=== PATIENT | female | born 1965 | race Caucasian/White ===

== ENCOUNTER → 2016-06-19 | Outpatient (CLI) | payer BC ==
--- NOTE | 2016-06-20 09:33 | MM ---
Reason for exam: screening (asymptomatic). History: Patient is postmenopausal and has history of other cancer at age 22. Physical Findings: Nurse did not find any significant physical abnormalities on exam. MG Screening Mammo w CAD Bilateral CC and MLO view(s) were taken. The breast tissue is heterogeneously dense. This may lower the sensitivity of mammography. Large 5cm circumscribed mass central left breast. Additional nodularity upper outer quadrant posteriorly. These results were verbally communicated with the patient and result sheet given to the patient on 06/19/16. ASSESSMENT: Incomplete: need additional imaging evaluation, BI-RAD 0 RECOMMENDATION: Ultrasound of the left breast. ALED
--- NOTE | 2016-06-20 09:37 | USB ---
Reason for exam: additional evaluation requested from abnormal screening. History: Patient is postmenopausal and has history of other cancer at age 22. US Breast Workup LT Left breast ultrasound includes all four quadrants, the retroareolar region and axilla. Finding demonstrates a 4.17 x 1.33 x 4.45cm cystic lesion at 12 o'clock that corresponds to the mammographic finding, a 0.25 x 0.14 x 0.35cm lesion too small to characterize at 12 o'clock, a 0.52 x 0.46 x 0.64cm ductal ectasia at the nipple, a 0.56 x 0.26 x 0.34cm mixed lesion at 10 o'clock for which a 6 month follow up is recommended and ductal ectasia at the nipple. These results were verbally communicated with the patient and result sheet given to the patient on 06/19/16. ASSESSMENT: Probably benign, BI-RAD 3 RECOMMENDATION: Ultrasound of the left breast in 6 months. Manage patient on a clinical basis. (consideration to ultrasound guided cyst aspiration if large cyst is symptomatic)
--- NOTE | 2016-06-20 11:43 | BD ---
EXAMINATION TYPE: MG DEXA axial skeleton. DATE OF EXAM: 06/19/2016 4:44 PM COMPARISON: NONE CLINICAL HISTORY: Postmenopausal female Height: 5 FT 5 IN Weight: 123 FRAX RISK QUESTIONS: Alcohol (3 or more units per day): YES Family History (Parent hip fracture): NO Glucocorticoids (More than 3mos): NO (Ex: prednisone, prednisolone, methylprednisolone, dexamethasone, and hydrocortisone). History of Fracture in Adulthood: YES Secondary Osteoporosis: 1. Type 1 Diabetes: NO 2. Hyperthyroidism: NO 3. Menopause before 45: NO 4. Malnutrition: NO 5. Chronic liver disease: NO Rheumatoid Arthritis: NO Current Tobacco Use: YES RISK FACTORS HISTORY OF: Smoke tobacco: YES Drink Alcohol: YES Active: YES Postmenopausal woman: AGE 48 Lost more than 2 inches in height since high school: YES MEDICATIONS: Additional Medications: NONE Additional History: EXAM MEASUREMENTS: Bone mineral densitometry was performed using the [employer] System. Bone mineral density as measured about the Lumbar spine is: ----- L1-L4(G/cm2): 1.063 T Score Values are as follows: ----- L2: -1.5 ----- L3: -0.6 ----- L4: -1.2 ----- L1-L4: -1.0 BASELINE Bone mineral density about the R hip (g/cm2): 0.776 Bone mineral density about the L hip (g/cm2): 0.802 T Score values are as follows: -----R Neck: -1.9 -----L Neck: -1.7 -----R Intertrochanter: -2.0 -----L Intertrochanter: -1.6 BASELINE IMPRESSION: Osteopenia (T Score between -2.5 and -1 as noted by T score values There is slightly increased risk of fracture and the patient may be considered for treatment. Re-Screen 1-2 years. DEBRA HIPS AND SPINE NOTE: T-SCORE=SD OF THE YOUNG ADULT MEAN.
== END | disposition home or self-care (01) ==
LOC: RADMAMWWP 15:12
PROVIDERS: ATTEND Family Medicine
DX: Z12.31 Encounter for screening mammogram for malignant neoplasm of breast (principal); R92.8 Other abnormal and inconclusive findings on diagnostic imaging of breast; M85.851 Other specified disorders of bone density and structure, right thigh; M85.852 Other specified disorders of bone density and structure, left thigh; M85.88 Other specified disorders of bone density and structure, other site
CPT/HCPCS: 77080; 76641; G0202

== ENCOUNTER → 2016-11-07 | Outpatient (CLI) | payer BC ==
--- NOTE | 2016-11-08 08:50 | USB ---
Reason for exam: follow-up at short interval from prior study. History: Patient is postmenopausal and has history of other cancer at age 22. Physical Findings: Nurse Summary: large round, soft, movable lump left breast 12 o'clock (nurse mj). US Breast LT Left breast ultrasound includes all four quadrants, the retroareolar region and axilla. Finding demonstrates a 4.2 x 5.0 x 2.0cm oval, cystic lesion at 12 o'clock, a 0.4 x 0.5 x 0.2cm oval, cystic lesion at 1 o'clock, a 0.4 x 0.2 x 0.1cm oval, lesion too small to characterize at 2 o'clock, a 0.7 x 0.3 x 0.2cm oval, cluster, mixed lesion at 4 o'clock for which a 6 month follow up is recommended, a 0.5 x 0.5 x 0.3cm oval, cystic lesion at 9 o'clock, a 0.3 x 0.4 x 0.2cm oval, cystic lesion at 9 o'clock, a 0.7 x 0.4 x 0.2cm oval, hypoechoic lesion at 10 o'clock, prior 0.6 x 0.4 x 0.3cm, continued 6 month follow up. These results were verbally communicated with the patient and result sheet given to the patient on 11/07/16. ASSESSMENT: Probably benign, BI-RAD 3 RECOMMENDATION: Ultrasound of the left breast in 6 months. (for 4 o'clock and 10 o'clock probably benign masses)
== END | disposition home or self-care (01) ==
LOC: RADUSWWP 14:15
PROVIDERS: ATTEND Family Medicine
DX: N63 Unspecified lump in breast (principal)

== ENCOUNTER → 2017-07-31 | Outpatient (CLI) | payer OTHER ==
--- NOTE | 2017-07-31 09:17 | MM ---
Reason for exam: additional evaluation requested from prior study. Last mammogram was performed 1 year and 1 month ago. History: Patient is postmenopausal and has history of other cancer at age 22. Physical Findings: Nurse Summary: 4cm nodule in the left breast at 12-3 o'clock (nurse mj). MG Diagnostic Mammo w CAD DEBRA Bilateral CC and MLO view(s) were taken. Prior study comparison: June 19, 2016, bilateral MG screening mammo w CAD. The breast tissue is heterogeneously dense. This may lower the sensitivity of mammography. Large left breast mass, mammography stable. These results were verbally communicated with the patient and result sheet given to the patient on 07/31/17. ASSESSMENT: Incomplete: need additional imaging evaluation, BI-RAD 0 RECOMMENDATION: Ultrasound of the left breast.
--- NOTE | 2017-07-31 09:20 | USB ---
Reason for exam: additional evaluation requested from abnormal screening. History: Patient is postmenopausal and has history of other cancer at age 22. US Breast LT Left complete breast ultrasound includes all four quadrants, the retroareolar region and axilla. Finding demonstrates a 4.5 x 2.5 x 4.0cm cystic lesion at 12 o'clock and a 0.2 x 0.2 x 0.5cm lesion too small to characterize at 9 o'clock increased through transmission, cystic, benign. These results were verbally communicated with the patient and result sheet given to the patient on 07/31/17. ASSESSMENT: Benign, BI-RAD 2 RECOMMENDATION: Aspiration of the left breast. (for symptomatic relief of pain if desired) Called Dr. Billy with mammographic findings and has scheduled an appointment for the patient for 07/31/[address] Garcia. PRELIMINARY REPORT CALLED AND FAXED TO DR. GARCIA ON 07/31/17.
--- NOTE | 2017-07-31 09:24 | P.GSHP ---
History of Present Illness H&P Date: 07/31/17 Patient is a 51 year old white female who noted a painful nodularity in her left breast. It has been palpable to the patient for about two months. Patient stopped having periods about one year ago, however, the area appears to increase in size and tenderness at times but she is unsure as to when or how often this occurs. No nipple discharge. Not had anything like this in the past. A mammogram and ultrasound today revealed no lesions of concern in the right breast, and what appeared to be a non-complex cyst in the left breast. Patient is a smoker and drinks at least two cups of coffee/day. family history: 1. maternal grandfather colon cancer 2. mother cervical 3. patient cervical cancer: recurred three times, conization done DR. Colon done 4 years ago menarche: 15 : ast at 18, 6 , 3 live births breast fed none menopause: 50 BCP/Horomes: none social history: smoke: 1 PPD/20 years alcohol: moderation glass of wine/month drugs: none HEENT: none lungs: none heart: none GI: none musculoskelatal: none neurologic: none skin: none endocrine: none : cervical cancer - Constitutional Constitutional: Denies chills, Denies fever - EENT Eyes: bilateral as per HPI Ears: deny: decreased hearing, ear discharge, earache, tinnitus Ears, nose, mouth and throat: Denies headache, Denies sore throat - Breasts Breasts: bilateral: as per HPI - Cardiovascular Cardiovascular: Denies chest pain, Denies shortness of breath - Respiratory Comment: smoker Respiratory: Denies cough, Denies 7 - Genitourinary (Female) Genitourinary: Reports as per HPI - Menstruation Menstruation: Reports as per HPI - Musculoskeletal Musculoskeletal: Denies myalgias - Integumentary Integumentary: Denies pruritus, Denies rash - Neurological Neurological: Denies numbness, Denies weakness - Psychiatric Psychiatric: Denies anxiety, Denies depression - Endocrine Endocrine: Denies fatigue, Denies weight change - Allergic/Immunologic Allergic/Immunologic: Reports as per HPI Past Medical History Past Medical History: No Reported History History of Any Multi-Drug Resistant Organisms: None Reported Past Surgical History: No Surgical Hx Reported Past Psychological History: Anxiety Smoking Status: Current every day smoker Past Alcohol Use History: Heavy Past Drug Use History: None Reported Medications and Allergies Home Medications Medication Instructions Recorded Confirmed Type Hair/Skin/Nails 1 tab PO HS 02/26/16 02/26/16 History Multivitamins, Thera [Multivitamin] 1 tab PO HS 02/26/16 02/26/16 History Allergies Allergy/AdvReac Type Severity Reaction Status Date / Time aspirin Allergy Unknown Verified 02/26/16 15:16 Surgical - Exam - General well developed, well nourished, no distress - Eyes normal ocular movement - ENT no hearing loss, no congestion - Neck no masses, trachea midline - Respiratory normal respiratory effort, clear to auscultation - Cardiovascular Rhythm: regular Heart Sounds: normal: S1, S2 - Abdomen Abdomen: soft, non tender, no guarding, no rigid, no rebound - Neurologic no disoriented, no combative - Musculoskeletal normal gait, normal posture - Psychiatric oriented to time, oriented to person, oriented to place, speech is normal, memory intact right breast: no masses left breast: palpable smooth walled mass/cyst by ultrasound at 12:oclock, about 5 cm in size no other vincenzo bilateral axilla : no adenopathy of concern Results mammogram and ultrasound reviewed with Dr. Paul Assessment and Plan Assessment: 1. left breast cyst 2. nicotene dependance Plan: 1. aspiration of left breast cyst/see procedure note 2. discussed avoiding caffeine and nicotine patient aware these may increase fibrocystic changes in her breast 3. follow up in two weeks cc: julius cc: ann marie
--- NOTE | 2017-07-31 09:29 | P.PCN ---
Date of Procedure: 07/31/17 Preoperative Diagnosis: left breast cyst Postoperative Diagnosis: same Procedure(s) Performed: left breast cyst aspiration Anesthesia: none Surgeon: Velia Garcia Estimated Blood Loss (ml): 0 Pathology: other (cyst fulid) Condition: stable Indications for Procedure: painful breast cyst Operative Findings: left breast fullness at 12 0 clock Description of Procedure: The risk and benfits of the procedure were discussed with the patient. The area of the left breast was prepped with betadine. A 22 gauge needle was introduced into a palpable fullness at 12 o clock in the left breast. About 6 cc of green fluid was withdrawn with complete resolution of the lesion. The fluid was sent to pathology. The patient tolerated the procedurer without any complications. A bandaid was applied. She will follow up in two weeks unless she has any concerns prior to that time.
== END | disposition home or self-care (01) ==
LOC: RADMAMWWP 07:47
PROVIDERS: ATTEND Family Medicine
DX: R92.8 Other abnormal and inconclusive findings on diagnostic imaging of breast (principal); N64.4 Mastodynia
CPT/HCPCS: 77066

== ENCOUNTER → 2017-07-31 | Outpatient (CLI) | payer OTHER | END | disposition home or self-care (01) | LOC: WWCWWP 08:57 | PROVIDERS: ATTEND Surgery | DX: N60.02 Solitary cyst of left breast (principal) | CPT/HCPCS: 88108; 88305 ==

== ENCOUNTER → 2017-08-14 | Outpatient (CLI) | payer OTHER ==
[2017-08-14 10:04] VITALS: BP 106/59; PULSE 84; BMI 20.5
--- NOTE | 2017-08-14 10:35 | P.PN ---
Subjective Progress Note Date: 08/14/17 The patient is a 51-year-old white female who is status post left breast cyst aspiration on 07/31/2017. The cystic contents were benign. However approximately 2 days after aspiration the patient states that she felt the nodule recurring. It is not as large as it was before but it is approximately 4 cm in size. It is tender to palpation. The patient has no evidence of any infection. She has no fever or chills. We have discussed re-aspiration, and we will do this again today. Objective - Vital Signs Vital signs: Vital Signs Temp Pulse 84 08/14/17 09:57 Resp BP 106/59 08/14/17 09:57 Pulse Ox Intake & Output 08/13/17 08/14/17 08/14/17 18:59 06:59 18:59 Weight 54.431 kg - Constitutional General appearance: Present: average body habitus - Respiratory Respiratory: bilateral: CTA - Cardiovascular Rhythm: regular Heart sounds: normal: S1, S2 - Psychiatric Psychiatric: Present: A&O x's 3, appropriate affect, intact judgment & insight - Additional findings Additional findings: Examination of the left breast Left breast: Approximately 3-4 cm fullness posterior to the nipple area appears to be consistent with a cyst no other dominant masses or nodules of concern Left axilla: No adenopathy of concern noted Assessment and Plan Assessment: 1. Recurrent left breast cyst Plan: 1. Aspiration recurrent left breast cyst and risks and benefits were discussed with the patient in she wishes this to be reaspirated. The patient understands that the cyst may recur and if it recurs after 3 times would recommend excision of the cyst. Cc: Dr. Billy
--- NOTE | 2017-08-14 10:39 | P.PCN ---
Date of Procedure: 08/14/17 Preoperative Diagnosis: Left breast cyst Postoperative Diagnosis: same Procedure(s) Performed: Aspiration left breast cyst Anesthesia: none Surgeon: Velia Garcia Estimated Blood Loss (ml): 0 Pathology: none sent Condition: stable Disposition: same day Indications for Procedure: 51-year-old white female with recurrent left breast cyst which is symptomatically painful Operative Findings: Brown fibrocystic fluid Description of Procedure: The area of the left breast was prepped using Betadine. A 22-gauge needle was introduced into the area of concern. Approximately 10 mL of brown fluid was aspirated. There appeared to be complete resolution of the nodule in the left breast. The needle was withdrawn and pressure was applied. The patient tolerated the procedure in stable condition. The specimen was not sent for pathology as fluid from this area had previously been sent and was benign. cc: Dr. Shipley
== END ==
LOC: WWCWWP 09:48
PROVIDERS: ATTEND Surgery
DX: Z53.9 Procedure and treatment not carried out, unspecified reason (principal)

== ENCOUNTER → 2018-09-16 | Day surgery (SDC) | payer OTHER ==
[2018-09-14 09:45] VITALS: BMI 20.5
[~2018-09-16] MED LIST: LACTATED RINGERS 1,000 ML IV SCH; LIDOCAINE 1% 20 ML VIAL (10MG/ML) FOR IV START INTRADERMA PRN; LIDOCAINE 1% INJ 10MG/ML (20 ML MDV) ONE; PROPOFOL 10 MG/ML 20 ML VIAL IV ONE
--- NOTE | 2018-09-16 07:45 | P.GSHP ---
History of Present Illness H&P Date: 09/16/18 CHIEF COMPLAINT: Colon screen HISTORY OF PRESENT ILLNESS: The patient is a 52-year-old female who presents for colon screen. Lower endoscopy was offered for further evaluation and management. PAST MEDICAL HISTORY: Please see list. PAST SURGICAL HISTORY: Please see list. MEDICATIONS: Please see list. ALLERGIES: Please see list. SOCIAL HISTORY: No illicit drug use FAMILY HISTORY: No reports of Crohn disease or ulcerative colitis. REVIEW OF ORGAN SYSTEMS: CONSTITUTIONAL: No reports of fevers or chills. PHYSICAL EXAM: VITAL SIGNS: Stable GENERAL: Well-developed pleasant in no acute distress. HEENT: No scleral icterus. Extraocular movements grossly intact. Moist buccal mucosa. NECK: Supple without lymphadenopathy. CHEST: Unlabored respirations. Equal bilateral excursions. CARDIOVASCULAR: Regular rate and rhythm. Distal 2+ pulses. ABDOMEN: Soft, nontender, nondistended. MUSCULOSKELETAL: No clubbing, cyanosis, or edema. ASSESSMENT: 1. Colon screen. PLAN: 1. Recommend proceeding with a lower endoscopy Past Medical History Past Medical History: Cancer Additional Past Medical History / Comment(s): cervical cancer x2 History of Any Multi-Drug Resistant Organisms: None Reported Past Surgical History: No Surgical Hx Reported Additional Past Surgical History / Comment(s): cervical conization Past Anesthesia/Blood Transfusion Reactions: No Reported Reaction Additional Past Anesthesia/Blood Transfusion Reaction / Comment(s): sisters have hard time coming out of anesthesia Smoking Status: Current every day smoker - Past Family History Mother Family Medical History: Deep Vein Thrombosis (DVT) Sister(s) Family Medical History: Cancer, Neurologic Disorder Additional Family Medical History / Comment(s): skin cancer, possible breast cancer, MS Medications and Allergies Home Medications Medication Instructions Recorded Confirmed Type Hair/Skin/Nails 1 tab PO HS 02/26/16 09/14/18 History Multivitamins, Thera [Multivitamin] 1 tab PO HS 02/26/16 09/14/18 History Calcium Carbonate [Calcium] 1,200 mg PO DAILY 09/14/18 09/14/18 History Cholecalciferol [Vitamin D3 (25 5,000 unit PO DAILY 09/14/18 09/14/18 History Mcg = 1000 Iu)] Allergies Allergy/AdvReac Type Severity Reaction Status Date / Time aspirin Allergy Unknown Verified 09/14/18 09:24
[2018-09-16 09:10] VITALS: TEMP 97.9
--- NOTE | 2018-09-16 09:15 | P.HPADDEND ---
H&P Addendum H&P Addendum Date: 09/16/18 We'll proceed with upper and lower endoscopy. Patient reports gastroesophageal reflux disease.
--- NOTE | 2018-09-16 09:32 | P.PCN ---
Date of Procedure: 09/16/18 Description of Procedure: PREOPERATIVE DIAGNOSIS: Gastroesophageal reflux disease. POSTOPERATIVE DIAGNOSIS: Gastroesophageal reflux disease. Gastritis and duodenitis OPERATION: Esophagogastroduodenoscopy with biopsies along antrum. SURGEON: Siria Worrell MD ANESTHESIA: MAC. INDICATIONS: The patient is a 52-year-old female who presents with a history of reflux disease. Benefits and risks of the procedure were described. Informed consent was obtained. DESCRIPTION: The patient was brought into the endoscopy suite and laid in the left lateral decubitus position. An Olympus gastroscope was passed along the posterior oropharynx down to the distal esophagus where the squamocolumnar junction was encountered at 40 cm from the incisors. The stomach was entered and no bile reflux was found. Additional findings are listed below. Biopsies with cold forceps were obtained of the antrum. The first through third portion of the duodenum was examined and remarkable for duodenitis. Retroflexion of the scope confirmed Hill grade 4 lower esophageal valve. The squamocolumnar junction demonstrated LA grade A erosive esophagitis. The stomach was desufflated. The patient tolerated the procedure well. FINDINGS: Squamocolumnar junction 38 cm from the incisors. Diaphragmatic hiatus at 38 cm. Hill grade 4 lower esophageal valve. LA grade A erosive esophagitis. Chronic gastritis Duodenitis RECOMMENDATIONS: Upper endoscopy as needed.
--- NOTE | 2018-09-16 09:53 | P.PCN ---
Date of Procedure: 09/16/18 Description of Procedure: PREOPERATIVE DIAGNOSIS: Colonoscopy screening, first POSTOPERATIVE DIAGNOSIS: Colonoscopy screening, first Cecal polyp Scattered diverticulosis Internal hemorrhoids, grade 2 OPERATION: Colonoscopy to the ileocecal valve and appendiceal orifice. Colonoscopy with hot snare polypectomy SURGEON: Siria Worrell MD. ANESTHESIA: MAC. INDICATIONS: The patient is a 52-year-old female who presents for her first colonoscopy screening. Benefits and risks were described and informed consent was obtained. DESCRIPTION OF PROCEDURE: The patient had undergone Suprep. She had been brought into the operating room and laid in the left lateral decubitus position. After adequate intravenous sedation, the rectum was examined with 2% lidocaine jelly. No external hemorrhoids were encountered. The rectal tone was within normal limits. No lesions were palpated in the rectal vault. An Olympus colonoscope was advanced until the ileocecal valve and appendiceal orifice were clearly viewed. The prep was excellent with visualization of the mucosal folds. The scope was removed with visualization of each mucosal fold. Scattered diverticulosis was encountered. Cecal polyp was found and snare polypectomy. No evidence of focal colitis was found. Retroflexion of the scope demonstrated grade 2 internal hemorrhoids without active bleeding or inflammation. The colon was desufflated. The patient had tolerated the procedure well. Withdrawal time was over 6 minutes. FINDINGS: Aronchick preparation quality scale 1 (1-5) Internal hemorrhoids, grade 2 No external hemorrhoids No arteriovenous malformations Scattered diverticulosis Removal of 1 polyp: - Snare polypectomy at cecum, 8 mm tubulovillous adenoma polyp. No focal colitis. RECOMMENDATIONS: Repeat colonoscopy in 5 years, 2023. Plan - Discharge Summary Discharge Rx Participant: Yes New Discharge Prescriptions: No Action Multivitamins, Thera [Multivitamin] 1 tab PO HS Hair/Skin/Nails 1 tab PO HS Cholecalciferol [Vitamin D3 (25 Mcg = 1000 Iu)] 5,000 unit PO DAILY Calcium Carbonate [Calcium] 1,200 mg PO DAILY Discharge Medication List Hair/Skin/Nails 1 tab PO HS 02/26/16 [History] Multivitamins, Thera [Multivitamin] 1 tab PO HS 02/26/16 [History] Calcium Carbonate [Calcium] 1,200 mg PO DAILY 09/14/18 [History] Cholecalciferol [Vitamin D3 (25 Mcg = 1000 Iu)] 5,000 unit PO DAILY 09/14/18 [History]
[2018-09-16 10:05] VITALS: BP 90/69; PULSE 97; RESP 18
== END | disposition home or self-care (01) ==
LOC: ORWHC2ENDO 08:12
PROVIDERS: ATTEND Surgery Plastic and Reconstructive Surgery
DX: Z12.11 Encounter for screening for malignant neoplasm of colon (principal); K21.0 Gastro-esophageal reflux disease with esophagitis; K64.8 Other hemorrhoids; D12.0 Benign neoplasm of cecum; K57.30 Diverticulosis of large intestine without perforation or abscess without bleeding; K29.70 Gastritis, unspecified, without bleeding; K29.80 Duodenitis without bleeding; Z80.49 Family history of malignant neoplasm of other genital organs; F17.210 Nicotine dependence, cigarettes, uncomplicated; Z80.8 Family history of malignant neoplasm of other organs or systems; Z88.6 Allergy status to analgesic agent
CPT/HCPCS: 81025; 88305; 45385; 43239; J2001; J2704

== ENCOUNTER 2018-10-28 12:02 | Emergency (ER) | payer OTHER ==
[2018-10-28] MEDS ORDERED: SODIUM CHLORIDE 0.9% 1,000 ML IV STA (12:17)
[2018-10-28] MEDS ORDERED: ONDANSETRON 4 MG/2 ML VIAL IVP STA (12:42)
[2018-10-28] MEDS ORDERED: MORPHINE SULFATE 4 MG/ML SYRINGE IV STA (12:42)
[2018-10-28 12:54] LABS: Appearance,Urine Clear (Clear); Bilirubin,Urine Negative (Negative); Blood,Urine Negative (Negative); Color,Urine Colorless; Glucose,Urine (UA) Negative (Negative); Ketones,Urine Negative (Negative); Leukocyte Esterase,Urine Negative (Negative); Nitrite,Urine Negative (Negative); PH, Urine 6.5 (5.0-8.0); Protein,Urine Negative (Negative); Specific Gravity,Urine 1.001 (1.001-1.035); Urobilinogen,Urine <2.0 mg/dL (<2.0)
[2018-10-28 12:59] LABS: Basophils # (A) 0.1 k/uL (0-0.2); Basophils % (A) 1 %; Eosinophils # (A) 0.2 k/uL (0-0.7); Eosinophils % (A) 2 %; HCT 47.4 % (34.0-46.0); HGB 15.6 gm/dL (11.4-16.0); Lymphocytes # (A) 2.8 k/uL (1.0-4.8); Lymphocytes % (A) 28 %; MCH 32.5 pg (25.0-35.0); MCHC 32.9 g/dL (31.0-37.0); MCV 98.9 fL (80.0-100.0); Mean Platelet Volume 7.8; Monocytes # (A) 0.4 k/uL (0-1.0); Monocytes % (A) 3 %; Neutrophils # (A) 6.6 k/uL (1.3-7.7); Neutrophils % (A) 65 %; Platelet Count 292 k/uL (150-450); RBC 4.79 m/uL (3.80-5.40); RDW 14.8 % (11.5-15.5); WBC 10.1 k/uL (3.8-10.6)
[2018-10-28 13:09] LABS: ALT 19 U/L (9-52); AST 18 U/L (14-36); African American GFR (CKD) >90 (>60 ml/min/1.73 sqM); Albumin 4.2 g/dL (3.5-5.0); Alkaline Phosphatase 123 U/L (38-126); Anion Gap 10 mmol/L; Blood Urea Nitrogen 11 mg/dL (7-17); Calcium 9.6 mg/dL (8.4-10.2); Carbon Dioxide 24 mmol/L (22-30); Chloride 106 mmol/L (98-107); Glucose 78 mg/dL (74-99); Non-African American GFR(CKD) >90 (>60 ml/min/1.73 sqM); Potassium 4.3 mmol/L (3.5-5.1); Sodium 140 mmol/L (137-145); Total Bilirubin 0.3 mg/dL (0.2-1.3); Total Protein 7.5 g/dL (6.3-8.2)
[2018-10-28 13:38] VITALS: PULSE 91; RESP 18
--- NOTE | 2018-10-28 14:23 | US ---
EXAMINATION TYPE: US gallbladder DATE OF EXAM: 10/28/2018 COMPARISON: NONE CLINICAL HISTORY: Pain. EXAM MEASUREMENTS: Liver Length: 14.4 cm Gallbladder Wall: 0.3 cm CBD: 0.5 cm Right Kidney: 11.0 x 3.9 x 5.1 cm Pancreas: wnl Liver: wnl Gallbladder: wnl Evidence for sonographic Ross's sign: No CBD: wnl Right Kidney: No hydronephrosis or masses seen IMPRESSION: No distinct abnormality seen.
--- NOTE | 2018-10-28 14:25 | XR ---
EXAMINATION TYPE: XR chest 2V DATE OF EXAM: 10/28/2018 COMPARISON: 02/26/2016 HISTORY: Shortness of breath TECHNIQUE: Frontal and lateral views of the chest are obtained. FINDINGS: Scattered senescent parenchymal changes noted. Hyperinflation compatible with COPD. No evidence for infiltrate. No evidence for atelectasis. Heart size is stable. Mediastinal structures are stable and grossly unremarkable. No evidence for hilar prominence. Degenerative changes dorsal spine. IMPRESSION: 1. No evidence for acute pulmonary disease.
--- NOTE | 2018-10-28 14:40 | ED ---
General Adult HPI - General Chief complaint: Abdominal Pain Stated complaint: Gallbladder issues Time Seen by Provider: 10/28/18 12:16 Source: patient, RN notes reviewed, old records reviewed Mode of arrival: ambulatory Limitations: no limitations - History of Present Illness Initial comments: 52-year-old female patient presents ED for chief complaint of epigastric right upper quadrant pain. Patient reports that she is scheduled for a elective cholecystectomy on November [address] Medrano. She reports that she continues to have pain after eating and right upper quadrant and is coming in for pain control. Patient also reports that she has had a waxing and waning cough for approximately 2 weeks, slightly completed antibiotics. Denies any ch est pain shortness of breath. Denies any other complaints at this time. Systemic: Pt denies fatigue, fever/chills, rash. Pt denies weakness, night sweats, weight loss. Neuro: Pt denies headache, visual disturbances, syncope or pre-syncope. HEENT: Pt denies ocular discharge or irritation, otalgia, rhinorrhea, pharyngitis or notable lymphadenopathy. Cardiopulmonary: Pt denies chest pain, SOB, heart palpitations, dyspnea on exertion. : Pt denies dysuria, burning w/ urination, frequency/urgency. Denies new onset urinary or bowel incontinence. MSK: Pt denies myalgia, loss of strength or function in extremities. Neuro: Pt denies new onset weakness, paresthesias. - Related Data Home Medications Medication Instructions Recorded Confirmed No Known Home Medications 10/28/18 10/28/18 Allergies Allergy/AdvReac Type Severity Reaction Status Date / Time aspirin Allergy Unknown Verified 10/28/18 12:59 Review of Systems ROS Statement: Those systems with pertinent positive or pertinent negative responses have been documented in the HPI. ROS Other: All systems not noted in ROS Statement are negative. Past Medical History Past Medical History: Cancer Additional Past Medical History / Comment(s): cervical cancer x2 History of Any Multi-Drug Resistant Organisms: None Reported Past Surgical History: No Surgical Hx Reported Additional Past Surgical History / Comment(s): cervical conization Past Anesthesia/Blood Transfusion Reactions: No Reported Reaction Additional Past Anesthesia/Blood Transfusion Reaction / Comment(s): sisters have hard time coming out of anesthesia Past Psychological History: Anxiety Smoking Status: Current every day smoker Past Alcohol Use History: Rare Past Drug Use History: None Reported - Past Family History Mother Family Medical History: Deep Vein Thrombosis (DVT) Sister(s) Family Medical History: Cancer, Neurologic Disorder Additional Family Medical History / Comment(s): skin cancer, possible breast cancer, MS General Exam - General Exam Comments Initial Comments: Constitutional: NAD, AOX3, Pt has pleasant affect. HEENT: NC/AT, trachea midline, neck supple, no lymphadenopathy. Posterior pharynx non erythematous, without exudates. External ears appear normal, without discharge. Mucous membranes moist. Eyes PERRLA, EOM intact. There is no scleral icterus. No pallor noted. Cardiopulmonary: RRR, no murmurs, rubs or gallops, no JVD noted. Lungs CTAB in anterior and posterior lozoya. No peripheral edema. Abdominal exam: Abdomen soft and non-distended. Abdomen mildly tender to palpation epigastric region, no other areas of abdominal tenderness, Ross sign negative.. Bowel sounds active in LLQ. No hepatosplenomegaly. No ecchymosis Neuro: CN II-XII grossly intact. No nuchal rigidity. No raccon eyes, no kelsey sign, no hemotympanum. No cervical spinal tenderness. MSK: No posterior calf tenderness bilaterally, homans sign negative bilaterally. Posterior tibialis and radial pulse +2 bilaterally. Sensation intact in upper and lower extremities. Full active ROM in upper and lower extremities, 5/5 stregnth. Limitations: no limitations Course Vital Signs 10/28/18 10/28/18 12:07 13:36 Temperature 97.5 F L 97.8 F Pulse Rate 107 H 91 Respiratory 17 18 Rate Blood Pressure 121/78 116/75 O2 Sat by Pulse 99 100 Oximetry Medical Decision Making - Medical Decision Making 52-year-old female patient presents ED for chief complaint of epigastric right upper quadrant pain. Patient reports that she is scheduled for a elective cholecystectomy on November [address] Medrano. She reports that she continues to have pain after eating and right upper quadrant and is coming in for pain control. Patient also reports that she has had a waxing and waning cough for approximately 2 weeks, slightly completed antibiotics. Denies any chest pain shortness of breath. Denies any other complaints at this time. Pt VSS, afebrile. Physical exam displayed: Abdomen mildly tender to palpation epigastric region, no other areas of abdominal tenderness, Ross sign negative. Laboratory investigations nonimpressive. UA negative. Chest x-ray negative. A Gallbladder Negative. Patient Feeling Improved, Patient Will Be Discharged, Will Follow up with Primary Care Provider and Surgeon. Return Precautions Discussed. Case Discussed with Dr. Holman. - Lab Data Result diagrams: 10/28/18 12:30 10/28/18 12:30 Lab Results 10/28/18 10/28/18 10/28/18 Range/Units 12:30 12:30 12:30 WBC 10.1 (3.8-10.6) k/uL RBC 4.79 (3.80-5.40) m/uL Hgb 15.6 (11.4-16.0) gm/dL Hct 47.4 H (34.0-46.0) % MCV 98.9 (80.0-100.0) fL MCH 32.5 (25.0-35.0) pg MCHC 32.9 (31.0-37.0) g/dL RDW 14.8 (11.5-15.5) % Plt Count 292 (150-450) k/uL Neutrophils % 65 % Lymphocytes % 28 % Monocytes % 3 % Eosinophils % 2 % Basophils % 1 % Neutrophils # 6.6 (1.3-7.7) k/uL Lymphocytes # 2.8 (1.0-4.8) k/uL Monocytes # 0.4 (0-1.0) k/uL Eosinophils # 0.2 (0-0.7) k/uL Basophils # 0.1 (0-0.2) k/uL Sodium 140 (137-145) mmol/L Potassium 4.3 (3.5-5.1) mmol/L Chloride 106 (98-107) mmol/L Carbon Dioxide 24 (22-30) mmol/L Anion Gap 10 mmol/L BUN 11 (7-17) mg/dL Creatinine 0.60 (0.52-1.04) mg/dL Est GFR (CKD-EPI)AfAm >90 (>60 ml/min/1.73 sqM) Est GFR (CKD-EPI)NonAf >90 (>60 ml/min/1.73 sqM) Glucose 78 (74-99) mg/dL Plasma Lactic Acid Hunter 1.0 (0.7-2.0) mmol/L Calcium 9.6 (8.4-10.2) mg/dL Total Bilirubin 0.3 (0.2-1.3) mg/dL AST 18 (14-36) U/L ALT 19 (9-52) U/L Alkaline Phosphatase 123 (38-126) U/L Total Protein 7.5 (6.3-8.2) g/dL Albumin 4.2 (3.5-5.0) g/dL Lipase 147 (23-300) U/L Urine Color Urine Appearance (Clear) Urine pH (5.0-8.0) Ur Specific [place] (1.001-1.035) Urine Protein (Negative) Urine Glucose (UA) (Negative) Urine Ketones (Negative) Urine Blood (Negative) Urine Nitrite (Negative) Urine Bilirubin (Negative) Urine Urobilinogen (<2.0) mg/dL Ur Leukocyte Esterase (Negative) Urine HCG, Qual (Not Detectd) 10/28/18 10/28/18 Range/Units 12:30 12:30 WBC (3.8-10.6) k/uL RBC (3.80-5.40) m/uL Hgb (11.4-16.0) gm/dL Hct (34.0-46.0) % MCV (80.0-100.0) fL MCH (25.0-35.0) pg MCHC (31.0-37.0) g/dL RDW (11.5-15.5) % Plt Count (150-450) k/uL Neutrophils % % Lymphocytes % % Monocytes % % Eosinophils % % Basophils % % Neutrophils # (1.3-7.7) k/uL Lymphocytes # (1.0-4.8) k/uL Monocytes # (0-1.0) k/uL Eosinophils # (0-0.7) k/uL Basophils # (0-0.2) k/uL Sodium (137-145) mmol/L Potassium (3.5-5.1) mmol/L Chloride (98-107) mmol/L Carbon Dioxide (22-30) mmol/L Anion Gap mmol/L BUN (7-17) mg/dL Creatinine (0.52-1.04) mg/dL Est GFR (CKD-EPI)AfAm (>60 ml/min/1.73 sqM) Est GFR (CKD-EPI)NonAf (>60 ml/min/1.73 sqM) Glucose (74-99) mg/dL Plasma Lactic Acid Hunter (0.7-2.0) mmol/L Calcium (8.4-10.2) mg/dL Total Bilirubin (0.2-1.3) mg/dL AST (14-36) U/L ALT (9-52) U/L Alkaline Phosphatase (38-126) U/L Total Protein (6.3-8.2) g/dL Albumin (3.5-5.0) g/dL Lipase (23-300) U/L Urine Color Colorless Urine Appearance Clear (Clear) Urine pH 6.5 (5.0-8.0) Ur Specific [place] 1.001 (1.001-1.035) Urine Protein Negative (Negative) Urine Glucose (UA) Negative (Negative) Urine Ketones Negative (Negative) Urine Blood Negative (Negative) Urine Nitrite Negative (Negative) Urine Bilirubin Negative (Negative) Urine Urobilinogen <2.0 (<2.0) mg/dL Ur Leukocyte Esterase Negative (Negative) Urine HCG, Qual Not Detected (Not Detectd) Disposition Clinical Impression: Abdominal pain Disposition: HOME SELF-CARE Condition: Stable Instructions (If sedation given, give patient instructions): Biliary Colic (ED), Low Fat Diet (ED) Additional Instructions: Patient to adhere to previously discussed treatment plan and will take medication(s) as directed. Patient to follow up with PCP in 1-2 days. Patient to return to ED if symptoms do not improve. Follow-up with surgeon and primary care provider tomorrow. Return to ER if condition worsens. Is patient prescribed a controlled substance at d/c from ED?: No Referrals: Jv Billy DO [Primary Care Provider] - 1-2 days Siria Worrell MD [STAFF PHYSICIAN] - 1-2 days
[2018-10-28 15:22] VITALS: BP 107/77; TEMP 97.9
== END 2018-10-28 15:27 | disposition home or self-care (01) ==
LOC: EC 12:02
DX: R10.13 Epigastric pain (principal); R10.11 Right upper quadrant pain; R05 Cough; F17.200 Nicotine dependence, unspecified, uncomplicated; Z85.41 Personal history of malignant neoplasm of cervix uteri; Z90.49 Acquired absence of other specified parts of digestive tract; Z98.890 Other specified postprocedural states; Z88.6 Allergy status to analgesic agent
CPT/HCPCS: 36415; 80053; 83605; 83690; 85025; 81003; 81025; 71046; 76705; 99285; 96374; 96375; 96361 ×2; J2270; J2405

== ENCOUNTER 2018-11-12 11:41 | Day surgery (SDC) | payer OTHER ==
[2018-11-05 10:18] VITALS: BMI 20.1
--- NOTE | 2018-11-12 10:07 | P.GSHP ---
History of Present Illness H&P Date: 11/12/18 CHIEF COMPLAINT: Cholecystitis HISTORY OF PRESENT ILLNESS: The patient is a 53-year-old female who presents with history of epigastric including right upper quadrant abdominal pain. She underwent diagnostic studies for the gallbladder. Separately her clinical picture was consistent with cholecystitis. Now she presents for surgical intervention. PAST MEDICAL HISTORY: Please see list PAST SURGICAL HISTORY: Please see list MEDICATIONS: Please see list ALLERGIES: Please see list SOCIAL HISTORY: Please see list FAMILY HISTORY: Pertinent for gallbladder disease REVIEW OF ORGAN SYSTEMS: CONSTITUTIONAL: No reports of fevers or chills. HEENT: Denies any troubles with the vision or hearing. PHYSICAL EXAM: VITAL SIGNS: Afebrile vital signs stable GENERAL: Well-developed pleasant in no acute distress. HEENT: No scleral icterus. Extraocular movements grossly intact. Moist buccal mucosa. NECK: Supple without lymphadenopathy. CHEST: Unlabored respirations. Equal bilateral excursions. CARDIOVASCULAR: Regular rate regular rhythm rhythm. Distal 2+ pulses. ABDOMEN: Soft, nondistended. Tender along the epigastrium and right upper quadrant. MUSCULOSKELETAL: No clubbing, cyanosis, or edema. NEURO : No focal or lateralizing signs. Cranial nerves II-12 within normal limits. PSYCH: Alert and oriented to person, place and time. SKIN: Well perfused. Good skin turgor. ASSESSMENT: 1. Epigastric and right upper quadrant abdominal pain 2. Chronic cholecystitis PLAN: 1. Will need a robotic cholecystectomy possible open. Benefits and risks were described. 2. Heparin for DVT prophylaxis 5000 units. 3. Antibiotic prophylaxis. Past Medical History Past Medical History: Cancer Additional Past Medical History / Comment(s): intermittent abdominal pain,cervical cancer x2-no radiation or chemo,steroids October 2018 History of Any Multi-Drug Resistant Organisms: None Reported Past Surgical History: No Surgical Hx Reported Additional Past Surgical History / Comment(s): cervical conization Past Anesthesia/Blood Transfusion Reactions: No Reported Reaction Additional Past Anesthesia/Blood Transfusion Reaction / Comment(s): sisters have hard time coming out of anesthesia Smoking Status: Current every day smoker - Past Family History Mother Family Medical History: Deep Vein Thrombosis (DVT) Sister(s) Family Medical History: Cancer, Neurologic Disorder Additional Family Medical History / Comment(s): skin cancer,breast cancer, MS Medications and Allergies Home Medications Medication Instructions Recorded Confirmed Type Ibuprofen 800 mg PO Q8H PRN 11/05/18 11/05/18 History Allergies Allergy/AdvReac Type Severity Reaction Status Date / Time aspirin AdvReac Nausea & Verified 11/05/18 10:08 Vomiting
[~2018-11-12 11:41] MED LIST changes: +DEXAMETHASONE SOD PHOSPHATE 10 MG/ML 1 ML VIAL IV ONE; +HEPARIN SODIUM,PORCINE 5,000 UNIT/ML 1 ML VIAL SQ ONE; +INDOCYANINE GREEN 25 MG VIAL IV STA; -LIDOCAINE 1% INJ 10MG/ML (20 ML MDV) ONE; +ONDANSETRON 4 MG/2 ML VIAL IVP ONE; -PROPOFOL 10 MG/ML 20 ML VIAL IV ONE; +SCOPOLAMINE 1.5MG/72HR PATCH TRANSDERM ONE
[2018-11-12] MEDS ORDERED: BUPIVACAIN-EPI 0.25%-1:200,000 30 ML VIAL SQ ONE ×2 (13:09→14:35)
[2018-11-12 13:10] LABS: Glucose,Whole Blood 82 mg/dL (75-99)
[2018-11-12] MEDS ORDERED: SUCCINYLCHOLINE CHLORIDE 100 MG/5 ML SYR IV ONE (13:58)
[2018-11-12] MEDS ORDERED: ROCURONIUM BROMIDE 10 MG/ML 10 ML VIAL IV ONE (13:58)
[2018-11-12] MEDS ORDERED: PROPOFOL 10 MG/ML 20 ML VIAL IV ONE (13:58)
[2018-11-12] MEDS ORDERED: NEOSTIGMINE 1 MG/ML 10 ML VIAL ONE (13:58)
[2018-11-12] MEDS ORDERED: LIDOCAINE 1% INJ 10MG/ML (20 ML MDV) ONE (13:58)
[2018-11-12] MEDS ORDERED: MIDAZOLAM 2 MG/2 ML VIAL ONE (13:58)
[2018-11-12] MEDS ORDERED: fentaNYL (PF) 50 MCG/ML 2 ML AMP ONE (13:58)
[2018-11-12] MEDS ORDERED: GLYCOPYRROLATE 0.2 MG/ML 2 ML VIAL ONE (13:58)
[2018-11-12] MEDS: HYDROmorphone 0.5 MG/0.5 ML SYRINGE IVP PRN ×3 (15:02→15:17)
--- NOTE | 2018-11-12 15:06 | P.OP ---
Date of Procedure: 11/12/18 Description of Procedure: SURGEON: JUVENAL GUTIERREZ MD PREOPERATIVE DIAGNOSES: 1. Right upper quadrant abdominal pain 2. Chronic cholecystitis 3. Anxiety disorder 4. Tobacco abuse disorder POSTOPERATIVE DIAGNOSES: 1. Right upper quadrant abdominal pain 2. Chronic cholecystitis 3. Anxiety disorder 4. Tobacco abuse disorder OPERATION: Robotic-assisted da Mel Xi laparoscopic cholecystectomy, multiport with FIREFLY ESTIMATED BLOOD LOSS: 5 mL. SPECIMENS REMOVED: Gallbladder. COMPLICATIONS: None. OPERATIVE FINDINGS: 1. Chronic cholecystitis 2. Console time 6 minutes INDICATIONS: The patient is a 53-year-old female who presents with cholelcystitis. Surgical intervention with a laparoscopic cholecystectomy was described at length including injury to the biliary tree, bleeding, infection, need for further surgery. Informed consent was obtained. Robotic assisted laparoscopic approach was described. Benefits and risks of the procedure including but not limited to bleeding, infection, injury to the biliary tree was described. Informed consent was obtained. DESCRIPTION OF PROCEDURE: Patient was brought to the operating room, placed in supine position. After general induction, the abdomen had been prepped and draped in standard sterile fashion. The robotic da Mel XI system was primed. After a timeout protocol was performed, the patient had been prepped and draped in standard sterile fashion. The patient was injected with indocyanine green. A 5 mm 0 degrees laparoscopic trocar entry was performed along the left upper quadrant. The abdomen insufflated to 15 mmHg pressure which was tolerated well. Diagnostic laparoscopy demonstrated no injury to bowel viscera or mesentery. The liver surface was unremarkable. Next, two 8 mm robotic ports were placed along the right upper abdomen. The camera 8-mm port was maintained along the epigastrium. Another 8 mm port was placed along the left upper abdominal wall after exchanging the 5 mm port. Please note that the ports were placed at least 10 to 15 cm away from the target anatomy of the gallbladder. The robot was docked along the left lateral abdomen. The patient was repositioned in reverse Trendelenburg position. Using a grasper for arm 3, a grasper for arm 4, including hook cautery for arm 1, the robotic system was docked and primed as described. Instruments were interchanged by the trade sales assistant including hook cautery, Bovie cautery and clip appliers. I had sat at the console. The gallbladder fundus was retracted over the dome of the liver. Initial attention was brought to the infundibulum which was gently retracted in the inferior lateral approach. Using a grasper, the cystic duct including the cystic artery was carefully skeletonized. FIREFLY was used to identify the cystic artery and cystic structures. A critical view of safety was obtained. Large PLASTIC clips were used throughout the entire case. Using a clip cooler man 2 clips were placed proximally, and 1 clip was placed between the infundibulum and cystic duct and divided using cautery. Next, the cystic artery was similarly clipped and cauterized. Electro-Bovie cautery was used to remove the gallbladder from the hepatic fossa. Hemostasis was checked and found to be adequate. The robot was undocked. I re-scrubbed into the case. Using a 10 mm Endo Catch bag via the left upper quadrant incision, the specimen was removed from the abdominal cavity. All pneumoperitoneum instruments were evacuated from the abdominal cavity. The incisions were reapproximated using 4-0 Monocryl in an interrupted subcuticular fashion. Fascial defects were less than 8 mm in size. Please note along the trocar sites, local anesthetic was placed as a field block prior to insertion of all instruments. Liquid glue was applied to the skin. At the end of the procedure needle, sponge, and instrument count had been verified correct by the surgical device sales representative. The patient was transferred to postanesthesia care unit in stable condition. Intraoperative films were shared with the patient's family who were very pleased with the level of care. Plan - Discharge Summary Discharge Rx Participant: No New Discharge Prescriptions: No Action Ibuprofen 800 mg PO Q8H PRN PRN Reason: Pain Discharge Medication List Ibuprofen 800 mg PO Q8H PRN 11/05/18 [History]
[2018-11-12 15:34] VITALS: TEMP 97.1
[2018-11-12 15:36] VITALS: RESP 16
[2018-11-12] MEDS ORDERED: IBUPROFEN 200 MG TAB PO ONE (16:04)
[2018-11-12] MEDS ORDERED: SCOPOLAMINE 1.5MG/72HR PATCH TRANSDERM ONE (16:16)
[2018-11-12] MEDS ORDERED: ONDANSETRON 4 MG/2 ML VIAL IVP ONE (16:16)
[2018-11-12] MEDS ORDERED: LACTATED RINGERS 1,000 ML IV ONE (16:17)
[2018-11-12 17:09] VITALS: BP 106/57; PULSE 72
== END 2018-11-12 17:25 | disposition home or self-care (01) ==
LOC: OR 11:41
PROVIDERS: ATTEND Surgery Plastic and Reconstructive Surgery
DX: K81.1 Chronic cholecystitis (principal); K21.9 Gastro-esophageal reflux disease without esophagitis; Z85.41 Personal history of malignant neoplasm of cervix uteri; F17.200 Nicotine dependence, unspecified, uncomplicated; F41.9 Anxiety disorder, unspecified; Z80.3 Family history of malignant neoplasm of breast; Z80.8 Family history of malignant neoplasm of other organs or systems; Z84.89 Family history of other specified conditions; Z88.6 Allergy status to analgesic agent
CPT/HCPCS: 47562; S2900; 88304

== ENCOUNTER → 2018-12-28 | Outpatient (CLI) | payer OTHER ==
--- NOTE | 2018-12-28 13:11 | XR ---
EXAMINATION TYPE: XR chest 2V DATE OF EXAM: 12/28/2018 COMPARISON: 10/28/2018 INDICATION: R05, cough TECHNIQUE: Frontal and lateral views of the chest are obtained. FINDINGS: The heart size is normal. The pulmonary vasculature is normal. Some mild infiltrate is at the cardiac apex at the left base. Stable small nodules in the posterior r ight lung base may been present on the 2012 CT. Lungs are otherwise clear. IMPRESSION: 1. Small lingular infiltrate. Correlate for atelectasis or pneumonia. 2. Remaining portions of the lung lozoya appear clear. 3. A small stable posterior right lower lobe nodule remains present. This appears to been present on 09/01/2011 CT exam.
== END | disposition home or self-care (01) ==
LOC: RADXRMAIN 12:37
PROVIDERS: ATTEND Family Medicine
DX: R91.8 Other nonspecific abnormal finding of lung field (principal); R91.1 Solitary pulmonary nodule
CPT/HCPCS: 71046

== ENCOUNTER → 2023-01-20 | Outpatient (CLI) | payer OTHER ==
[2023-01-21 03:01] LABS: Blood Urea Nitrogen 14.6 mg/dL (9.0-27.0)
[2023-01-21 03:02] LABS: Carbon Dioxide 26.5 mmol/L (21.6-31.8); Chloride 104 mmol/L (96-109); Potassium 4.8 mmol/L (3.5-5.5); Sodium 144 mmol/L (135-145)
[2023-01-21 03:33] LABS: HGB 14.1 g/dL (12.0-15.0); MCHC 31.3 g/dL (32.0-37.0); Mean Platelet Volume 11.5 FL (9.5-12.2); NRBC Per 100 WBC 0 X 10*3/uL (0.00-0.01); Platelet Count 386 X 10*3/uL (140-440); RBC 4.41 X 10*6/uL (4.10-5.20); RDW 13.8 % (11.5-14.5); WBC 8.13 X 10*3/uL (4.50-10.00)
== END | disposition home or self-care (01) ==
LOC: LABPAT 12:05
PROVIDERS: ATTEND Internal Medicine
DX: Z01.812 Encounter for preprocedural laboratory examination (principal)
CPT/HCPCS: 80051; 82565; 84520; 85027

== ENCOUNTER 2023-01-27 10:13 | Day surgery (SDC) | payer OTHER ==
[~2023-01-27 10:13] MED LIST changes: +ALPRAZolam 0.25 MG TAB PO PRN; +ALPRAZolam 0.5 MG TAB PO PRN; +ASPIRIN 325 MG TAB PO STA; -DEXAMETHASONE SOD PHOSPHATE 10 MG/ML 1 ML VIAL IV ONE; +HEPARIN SODIUM,PORCINE (1 ML) 2,500 UNIT in SODIUM CHLORIDE 0.9% 250 ML IRRIGATION PRN; +HEPARIN SODIUM,PORCINE 10,000 UNIT in SODIUM CHLORIDE 0.9% 1,000 ML IRRIGATION PRN; -HEPARIN SODIUM,PORCINE 5,000 UNIT/ML 1 ML VIAL SQ ONE; -INDOCYANINE GREEN 25 MG VIAL IV STA; -LACTATED RINGERS 1,000 ML IV SCH; -LIDOCAINE 1% 20 ML VIAL (10MG/ML) FOR IV START INTRADERMA PRN; +NITROGLYCERIN SL TABS 0.4 MG TAB SUBLINGUAL PRN; -ONDANSETRON 4 MG/2 ML VIAL IVP ONE; -SCOPOLAMINE 1.5MG/72HR PATCH TRANSDERM ONE; +SODIUM CHLORIDE 0.9% 1,000 ML in EMPTY BAG 1 BAG IV SCH
[2023-01-27] MEDS ORDERED: VERAPAMIL 2.5 MG/ML 2 ML AMP ONE (12:05)
[2023-01-27] MEDS ORDERED: LIDOCAINE 1% INJ 10MG/ML (20 ML MDV) ONE (12:05)
[2023-01-27] MEDS ORDERED: fentaNYL (PF) 50 MCG/ML 2 ML AMP ONE (12:28)
[2023-01-27] MEDS ORDERED: MIDAZOLAM 2 MG/2 ML VIAL IVP ONE (12:30)
[2023-01-27] MEDS ORDERED: LIDOCAINE 1% INJ 10MG/ML (20 ML MDV) SQ ONE ×2 (12:31→12:41)
[2023-01-27] MEDS ORDERED: VERAPAMIL SYRINGE (5 MG/10 ML) INTRAARTER ONE (12:33)
[2023-01-27] MEDS ORDERED: HEPARIN SODIUM 1,000 UN/ML (10ML VL) IVP ONE ×2 (12:45)
[2023-01-27] MEDS ORDERED: fentaNYL (PF) 50 MCG/ML 2 ML AMP IVP ONE (12:45)
[2023-01-27] MEDS ORDERED: CLOPIDOGREL 75 MG TAB ONE (12:46)
[2023-01-27] MEDS ORDERED: CLOPIDOGREL 75 MG TAB PO ONE (12:48)
[2023-01-27] MEDS: HEPARIN SODIUM 1,000 UN/ML (10ML VL) ONE ×2 (12:56→13:10)
[2023-01-27] MEDS ORDERED: IOPAMIDOL-370 100ML BTL INJ ONE ×3 (13:54→14:10)
[2023-01-27] MEDS ORDERED: HEPARIN SODIUM 1,000 UN/ML (10ML VL) ONE (14:16)
[2023-01-27] MEDS ORDERED: RX INFO: IV CONTRAST WAS GIVEN 1 EACH MISC MISCELLANE PRN (14:59)
[2023-01-27] MEDS ORDERED: ATROPINE SULFATE 0.1 MG/ML 10ML SYRINGE IV PRN (14:59)
[2023-01-27] MEDS ORDERED: ZOLPIDEM 5 MG TAB PO PRN (14:59)
[2023-01-27] MEDS ORDERED: MAG HYDROX/AL HYDROX/SIMETH 30 ML CUP PO PRN (14:59)
--- NOTE | 2023-01-27 15:20 | P.CARDCATH ---
Description of Procedure: PROCEDURES PERFORMED: Bilateral coronary angiography, ultrasound guided arterial access, unsuccessful attempted CLOTHING PATTERNMAKER of RCA, wiring of RCA INDICATION: CLOTHING PATTERNMAKER RCA CONSENT:I have discussed the risks, benefits and alternative therapies for the above-mentioned procedure and for both sedation/analgesia as well as necessary blood product administration, if indicated, as they pertain to this patient. The patient has indicated understanding and acceptance of the risks and procedures discussed. PROCEDURE: After the risks, benefits and alternatives of the above mentioned procedure explained in detail with the patient, informed consent was obtained. Patient was taken to the catheterization lab and prepped and draped in usual fashion. Ultrasound guidance was used to assess for arterial access. 1% lidocaine was used to anesthetize the right radial artery. A 6-[place] sheath was placed in the right radial artery using modified Seldinger technique and ultrasound guidance. Additionally a 6-[place] sheath was placed in the right femoral artery using ultrasound guided axis and microcatheter technique. There was inability to pass a J-wire passed the common iliac and angiography did show an eccentric common iliac stenosis. This was able to be traversed with a Glidewire. Using a 5-[place] FL 3.5 diagnostic catheter in the left main and a 6-[place] 0.75 guide catheter in the RCA, he will injection angiography was performed. The RCA appeared to be a more moderate caliber vessel and felt that 8-[place] sheaths would increase risk of dissection. Therefore initially started with a 6-[place] sheath. A 0.014 whisper wire, fielder XT, Stockkeeper 200, Jolene 3 and Confianza Pro Wires inside a course air microcatheter and 6-[place] guide liner were used to advance to the mid RCA. We were unable however to advance the microcatheter past the proximal to mid lesion. The equipment was "kicked out" while advancing and therefore we changed to a 6Fr AL 1.0 guide catheter. There still was difficulty advancing any wire past the mid RCA. The changed to a 6-[place] 3.0 guide catheter and attempted to advance a wire retrograde. There was dampening of the guide catheter at times and unable to advance a BMW past the proximal septals. Considered a more aggressive guide however given dampening and procedure length further attempts were aborted. The right radial sheath was removed and a TR band was placed with hemostasis achieved. The patient tolerated the procedure well. Patient was transported back to the post catheterization holding area in stable condition. Conscious Sedation: Patient was monitored under the direct supervision of myself for conscious sedation using Versed and fentanyl for a total duration of 98 alcides vangie HEMODYNAMICS: Ao: 137/71 SELECTIVE CORONARY ARTERIOGRAPHY: LEFT MAIN: The left main is a large caliber vessel which bifurcates into the LAD and circumflex. There is no significant stenosis. LEFT ANTERIOR DESCENDING CORONARY ARTERY: LAD is a large caliber vessel which wraps around to the apex. There is proximal LAD 30% stenosis. There is a proximal diagonal 1 40% stenosis. There are extensive [id number] collaterals. LEFT CIRCUMFLEX CORONARY ARTERY: Left circumflex is a moderate caliber vessel with mild luminal irregularities. RIGHT CORONARY ARTERY: The right coronary artery is a small to moderate caliber vessel which gives off a PDA and PLV branch and is the dominant vessel. There is a long approximately 60mm CLOTHING PATTERNMAKER 100% proximal RCA stenosis FINAL IMPRESSION: 1. CAD as described above including LAD 30%, Diagonal 1 40%, RCA 100% stenosis 2. Unsuccessful wiring/ PCI CLOTHING PATTERNMAKER of RCA PLAN: 1. Aggressive risk factor modification per most recent ACC/AHA guidelines. 2. Follow-up in the office in 1-2 weeks. Consider repeat CLOTHING PATTERNMAKER procedure with 7 or 8Fr guide catheters or retrograde approach if still having significant angina.
[2023-01-27] MEDS: RANOLAZINE 500 MG TAB.ER.12H PO SCH (20:23)
[2023-01-27] MEDS ORDERED: ATORVASTATIN 10 MG TAB PO SCH (21:00)
[2023-01-28 06:40] LABS: African American GFR (CKD) >90 (>60 ml/min/1.73 sqM); Non-African American GFR(CKD) >90 (>60 ml/min/1.73 sqM)
[2023-01-28 07:57] VITALS: BP 103/63; PULSE 77; RESP 18; TEMP 97.6
[2023-01-28] MEDS: RANOLAZINE 500 MG TAB.ER.12H PO SCH (08:49)
[2023-01-28] MEDS ORDERED: ASPIRIN 81 MG PO SCH (09:00)
[2023-01-28] MEDS ORDERED: METOPROLOL SUCCINATE (ER) 50 MG TAB.ER.24H PO SCH (09:00)
== END 2023-01-28 10:22 | disposition home or self-care (01) ==
LOC: CATHCVL 10:13 → 6NMEDSUR 14:09 → CATHCVL 01-28 10:22
PROVIDERS: ATTEND Internal Medicine
DX: I25.10 Atherosclerotic heart disease of native coronary artery without angina pectoris (principal); E78.5 Hyperlipidemia, unspecified; Z95.5 Presence of coronary angioplasty implant and graft; Z87.891 Personal history of nicotine dependence; Z79.82 Long term (current) use of aspirin; Z79.899 Other long term (current) drug therapy
CPT/HCPCS: 93454; 92920; 82565; C1769 ×9; C1887 ×4; C1894 ×2; C1751; J2250; J2001; J3010; J1644; Q9967